=== PATIENT | male | born 1995 | race Caucasian/White ===

== ENCOUNTER 2017-01-10 18:56 | Emergency (ER) | payer OTHER ==
[~2017-01-10] VITALS: Ht 185.4 cm; Wt 108.9 kg
[2017-01-10 19:20] VITALS: BP 129/83
[2017-01-10] MEDS ORDERED: ACETAMINOPHEN/CODEINE#3 (300/30mg) TAB PO ONE (22:45)
== END 2017-01-10 23:20 | disposition home or self-care (01) ==
LOC: ER 19:05
DX: S00.93XA Contusion of unspecified part of head, initial encounter (principal); F17.210 Nicotine dependence, cigarettes, uncomplicated; W22.8XXA Striking against or struck by other objects, initial encounter; Y93.89 Activity, other specified; Y99.0 Civilian activity done for income or pay; Y92.69 Other specified industrial and construction area as the place of occurrence of the external cause
CPT/HCPCS: 70450

== ENCOUNTER 2020-01-24 14:26 | Emergency (ER) | payer BC, OTHER ==
[~2020-01-24] VITALS: Ht 185.4 cm; Wt 86.2 kg
[2020-01-24] MEDS ORDERED: SODIUM CHLORIDE 0.9% 500 ML IVB ONE (14:28)
[2020-01-24 14:53] LABS: Basophils # (auto) 0 10 ^3/uL (0-0.2); Basophils % (auto) 0.1 % (0.0-2.0); Eosinophils # (auto) 0 10 ^3/uL (0-0.8); Eosinophils % (auto) 0.1 % (0.0-7.0); Hemoglobin 15.6 g/dL (13.5-17.5); Lymphocytes # (auto) 1.2 10 ^3/uL (0.4-5.4); Lymphocytes % (auto) 17.6 % (10.0-50.0); Mean Corpuscular Hemoglobin 28.9 pg (28.0-32.0); Mean Corpuscular Hgb Conc. 33.2 g/dL (32.0-36.0); Mean Corpuscular Volume 87.3 fL (80.0-100.0); Monocytes # (auto) 0.7 10 ^3/uL (0-1.3); Monocytes % (auto) 10.2 % (0.0-12.0); Neutrophils # (auto) 4.9 10 ^3/uL (1.6-8.6); Platelet Count (auto) 197 10^3/uL (140-450); Red Blood Cells 5.39 10^6/uL (4.5-5.90); Red Cell Distribution Width 14.3 % (11.8-14.3); White Blood Cell 6.8 10^3/uL (4.4-10.8)
[2020-01-24 15:06] VITALS: BP 119/71
[2020-01-24 15:08] LABS: Alanine Aminotransferase 36 U/L (16-61); Albumin 3.8 g/dL (3.4-5.0); Anion Gap 6 (5-15); Aspartate Aminotransferase 16 U/L (15-37); BUN/Creatinine Ratio 13.3; Blood Alcohol < 3.0 mg/dL (0-5); Blood Urea Nitrogen 12 mg/dL (7-18); Calcium 9.7 mg/dL (8.5-10.1); Carbon Dioxide 26 mmol/L (21-32); Chloride 106 mmol/L (98-107); GFR African American 133 mL/min; GFR Non-African American 110 mL/min; Glucose 99 mg/dL (74-106); Potassium 4.2 mmol/L (3.5-5.1); Sodium 138 mmol/L (136-145)
[2020-01-24 15:10] LABS: Alkaline Phosphatase 99 U/L (45-117); Bilirubin, Total 0.4 mg/dL (0.2-1.0)
[2020-01-24 15:42] LABS: Alcohol, Urine < 3.0 mg/dL (0-5); Amphetamine Screen, Urine POSITIVE (NEGATIVE); Barbiturate Scree,Urine NEGATIVE (NEGATIVE); Benzodiazephine Screen, Urine NEGATIVE (NEGATIVE); Cannabinoid Screen, Urine NEGATIVE (NEGATIVE); Cocaine Screen, Urine NEGATIVE (NEGATIVE); Opiate Scree,Urine NEGATIVE (NEGATIVE); Phencyclidine Screen, Urine NEGATIVE (NEGATIVE)
== END 2020-01-24 18:52 | disposition home or self-care (01) ==
LOC: EDBD 14:26 → ER 14:26
DX: T65.91XA Toxic effect of unspecified substance, accidental (unintentional), initial encounter (principal); M54.9 Dorsalgia, unspecified; R41.82 Altered mental status, unspecified; F41.9 Anxiety disorder, unspecified; F12.10 Cannabis abuse, uncomplicated; F15.10 Other stimulant abuse, uncomplicated; F17.210 Nicotine dependence, cigarettes, uncomplicated; Y92.9 Unspecified place or not applicable
CPT/HCPCS: 36415; 80053; 80307; 80320; 80329; 85025; 93005; 96360; 99284; J7040

== ENCOUNTER 2023-03-05 07:45 | Emergency (ER) | payer BC, MEDICAID ==
[~2023-03-05] VITALS: Ht 185.4 cm; Wt 91.0 kg
[2023-03-05 08:20] VITALS: BP 111/61
[2023-03-05] MEDS ORDERED: BACL10TA PO (08:55)
[2023-03-05] MEDS ORDERED: IBUP800T27 PO (08:55)
[2023-03-05] MEDS ORDERED: KETOROLAC TROMETH 60MG/2ML VIAL IM ONE (09:00)
== END 2023-03-05 09:16 | disposition home or self-care (01) ==
LOC: ER 07:45
DX: S76.011A Strain of muscle, fascia and tendon of right hip, initial encounter (principal); S23.41XA Sprain of ribs, initial encounter; F12.90 Cannabis use, unspecified, uncomplicated; F15.90 Other stimulant use, unspecified, uncomplicated; Z98.890 Other specified postprocedural states; W18.39XA Other fall on same level, initial encounter; Y93.89 Activity, other specified; Y92.89 Other specified places as the place of occurrence of the external cause; Y99.8 Other external cause status
CPT/HCPCS: 71101; 73502; 96372; 99284; J1885

== ENCOUNTER 2023-05-06 17:15 | Emergency (ER) | payer MEDICAID ==
[~2023-05-06] VITALS: Ht 185.4 cm; Wt 82.1 kg
[~2023-05-06 17:15] MED LIST: BACL10TA PO; IBUP-1456 PO
[2023-05-06 17:37] VITALS: BP 127/94
[2023-05-06] MEDS ORDERED: cefTRIAXone SOD 1,000 MG VL IM ONE (17:45)
[2023-05-06] MEDS ORDERED: DexAMETHasone SOD PHOS 10MG/1ML VIAL INJ IM ONE (17:45)
[2023-05-06] MEDS ORDERED: AZIT500T66 PO (17:46)
[2023-05-06] MEDS ORDERED: LIDO2SOL26 MT (17:46)
== END 2023-05-06 18:06 | disposition home or self-care (01) ==
LOC: ER 17:15
DX: J03.90 Acute tonsillitis, unspecified (principal); F17.210 Nicotine dependence, cigarettes, uncomplicated; F12.10 Cannabis abuse, uncomplicated; F15.10 Other stimulant abuse, uncomplicated
CPT/HCPCS: 96372; 99284; J0696; J1100

== ENCOUNTER 2023-05-29 07:46 | Emergency (ER) | payer MEDICAID ==
[~2023-05-29] VITALS: Ht 185.4 cm; Wt 83.5 kg
[~2023-05-29 07:46] MED LIST changes: +AZIT500T66 PO; +LIDO2SOL26 MT
[2023-05-29 08:11] LABS: Urine Bacteria FEW /hpf (None Seen); Urine Blood Negative /uL (Negative); Urine Hyaline Cast FEW /lpf (0 - 2); Urine Mucus FEW (None Seen); Urine Specific Gravity 1.033 (1.001-1.035); Urine WBC 3 /hpf (0 - 3)
[2023-05-29 08:21] LABS: Basophils # (auto) 0 10 ^3/uL (0-0.2); Basophils % (auto) 0.4 % (0.0-2.0); Eosinophils # (auto) 0 10 ^3/uL (0-0.8); Eosinophils % (auto) 0.1 % (0.0-7.0); Hematocrit 45.6 % (41.0-53.0); Hemoglobin 14.8 g/dL (13.5-17.5); Lymphocytes # (auto) 0.9 10 ^3/uL (0.4-5.4); Lymphocytes % (auto) 30.7 % (10.0-50.0); Mean Corpuscular Hemoglobin 28.6 pg (28.0-32.0); Mean Corpuscular Hgb Conc. 32.5 g/dL (32.0-36.0); Monocytes # (auto) 0.3 10 ^3/uL (0-1.3); Monocytes % (auto) 12.4 % (0.0-12.0); Neutrophils # (auto) 1.6 10 ^3/uL (1.6-8.6); Neutrophils % (auto) 56.4 % (37.0-80.0); Nucleated Red Blood Cells % 0.2 %; Red Blood Cells 5.18 10^6/uL (4.5-5.90); Red Cell Distribution Width 16.3 % (11.8-14.3); White Blood Cell 2.8 10^3/uL (4.4-10.8)
[2023-05-29 08:38] LABS: Albumin 3.5 g/dL (3.4-5.0); Calcium 8.3 mg/dL (8.5-10.1); Potassium 3.7 mmol/L (3.5-5.1)
[2023-05-29 08:41] LABS: BUN/Creatinine Ratio 17.5 (10.0-20.0); Bilirubin, Total 0.4 mg/dL (0.2-1.0); Total Protein 8.4 g/dL (6.4-8.2)
[2023-05-29] MEDS ORDERED: ONDANSETRON HCL 4 MG/2 ML VIAL IV ONE (10:00)
[2023-05-29] MEDS ORDERED: LOPERAMIDE HCL 2 MG CAP/TAB PO ONE (10:00)
[2023-05-29] MEDS ORDERED: HYDROmorphone HCL 2 MG/ML VL/or syr IV ONE (10:00)
[2023-05-29] MEDS ORDERED: ACETAMINOPHEN 325 MG TAB PO ONE (10:00)
[2023-05-29] MEDS ORDERED: SODIUM CHLORIDE 0.9% 1,000 ML IVB ONE (10:00)
[2023-05-29] MEDS ORDERED: IOHEXOL 350 MG/ML 100ML IJ ONE (10:17)
[2023-05-29 10:23] LABS: Magnesium 2.3 mg/dL (1.6-2.6)
[2023-05-29 10:48] LABS: INR 1.06 (0.9-1.15); Partial Thromboplastin Time 34.5 SEC (24.5-34.5)
[2023-05-29 11:16] VITALS: PULSE 74; RESP 16; O2SAT 99
[2023-05-29] MEDS ORDERED: LOPE7.5C PO (13:32)
[2023-05-29] MEDS ORDERED: MET500T PO (13:32)
[2023-05-29] MEDS ORDERED: ZOFR4T PO (13:32)
[2023-05-29 13:50] VITALS: BP 117/65; PULSE 71; RESP 18; TEMP 98.1; O2SAT 97
== END 2023-05-29 13:51 | disposition home or self-care (01) ==
LOC: ER 07:46
DX: R10.84 Generalized abdominal pain (principal); R11.2 Nausea with vomiting, unspecified; F17.210 Nicotine dependence, cigarettes, uncomplicated; F12.10 Cannabis abuse, uncomplicated; F15.10 Other stimulant abuse, uncomplicated; Z79.899 Other long term (current) drug therapy
CPT/HCPCS: 36415; 74177; 80053; 81001; 83690; 83735; 85025; 85610; 85730; 96361; 96374; 96375; 99285; J1170; J2405; J7030; Q9967

== ENCOUNTER 2023-05-31 03:20 | Emergency (ER) | payer MEDICAID ==
[~2023-05-31] VITALS: Ht 185.4 cm; Wt 81.0 kg
[~2023-05-31 03:20] MED LIST changes: +LOPE7.5C PO; +MET500T PO; +ZOFR4T PO
[2023-05-31 04:10] VITALS: TEMP 98.1
[2023-05-31] MEDS ORDERED: AMOX875T4 PO (04:23)
[2023-05-31] MEDS ORDERED: PRED20TA2 PO (04:23)
[2023-05-31] MEDS ORDERED: cefTRIAXone SOD 1,000 MG VL IM ONE (04:30)
[2023-05-31] MEDS ORDERED: methylPREDNISolone SOD SUCC 40 MG/ML VL IM ONE (04:30)
[2023-05-31 06:10] VITALS: BP 107/60; PULSE 75; RESP 18; O2SAT 99
== END 2023-05-31 06:13 | disposition home or self-care (01) ==
LOC: ER 03:20
DX: J03.90 Acute tonsillitis, unspecified (principal); Z79.899 Other long term (current) drug therapy
CPT/HCPCS: 96372; 99284; J0696; J2920

== ENCOUNTER 2023-08-08 08:26 | Emergency (ER) | payer MEDICAID ==
[~2023-08-08] VITALS: Ht 185.4 cm; Wt 84.1 kg
[~2023-08-08 08:26] MED LIST changes: +AMOX875T4 PO; +PRED20TA2 PO
[2023-08-08] MEDS ORDERED: IPRATROPIUM BROM 0.5 MG/2.5ML INH SOL HHN ONE (08:45)
[2023-08-08] MEDS ORDERED: ALBUTEROL SULF 2.5 MG/0.5ML(0.5%) NEB SOLN HHN ONE (08:45)
[2023-08-08 09:00] VITALS: PULSE 90; RESP 20; O2SAT 98
[2023-08-08 09:09] LABS: Base Excess -0.2 mmol/L (-2.0-2.0)
[2023-08-08 09:33] LABS: Basophils # (auto) 0 10 ^3/uL (0-0.2); Basophils % (auto) 0.4 % (0.0-2.0); Eosinophils # (auto) 0 10 ^3/uL (0-0.8); Eosinophils % (auto) 0.4 % (0.0-7.0); Hematocrit 37.8 % (41.0-53.0); Hemoglobin 12.5 g/dL (13.5-17.5); Lymphocytes % (auto) 19.5 % (10.0-50.0); Mean Corpuscular Hemoglobin 29.3 pg (28.0-32.0); Monocytes # (auto) 0.9 10 ^3/uL (0-1.3); Monocytes % (auto) 17.7 % (0.0-12.0); Nucleated Red Blood Cells % 0.2 %; Red Blood Cells 4.25 10^6/uL (4.5-5.90); Red Cell Distribution Width 14.7 % (11.8-14.3); White Blood Cell 4.9 10^3/uL (4.4-10.8)
[2023-08-08 09:43] LABS: COVID19 ANTIGEN SOFIA FIA POSITIVE (NEGATIVE)
[2023-08-08 09:44] LABS: Alanine Aminotransferase 64 U/L (7-40); Alkaline Phosphatase 87 U/L (46-116); Anion Gap 8 (5-15); Aspartate Aminotransferase 41 U/L (13-40); BUN/Creatinine Ratio 15.5 (10.0-20.0); Blood Urea Nitrogen 11 mg/dL (9-23); Carbon Dioxide 23 mmol/L (20-30); Chloride 108 mmol/L (98-107); Glucose 103 mg/dL (74-106); Potassium 4.2 mmol/L (3.5-5.1); Sodium 139 mmol/L (136-145)
[2023-08-08 09:45] LABS: Bilirubin, Total 0.3 mg/dL (0.2-1.0); Total Protein 7.4 g/dL (5.7-8.2)
[2023-08-08] MEDS ORDERED: METH4PAK PO (10:25)
[2023-08-08] MEDS ORDERED: AZIT1POW PO (10:25)
[2023-08-08 10:42] VITALS: BP 135/64; PULSE 84; RESP 16; TEMP 98.7; O2SAT 98
[2023-08-08 11:08] LABS: Urine Bacteria NONE SEEN /hpf (None Seen); Urine Blood Negative /uL (Negative); Urine Clarity Clear (Clear); Urine Color Colorless (Yellow); Urine Protein, UAD Negative (Negative); Urine Specific Gravity 1.019 (1.001-1.035); Urine Urobilinogen Normal (Negative); Urine WBC <1 /hpf (0 - 3); Urine pH 7.5 (5.0-8.0)
== END 2023-08-08 10:43 | disposition home or self-care (01) ==
LOC: ER 08:26
DX: U07.1 COVID-19 (principal); F17.210 Nicotine dependence, cigarettes, uncomplicated; F12.90 Cannabis use, unspecified, uncomplicated; Z90.49 Acquired absence of other specified parts of digestive tract; Z79.899 Other long term (current) drug therapy
CPT/HCPCS: 36415; 36600; 71045; 80053; 81001; 82805; 84484; 85025; 87426; 93005; 94640; 99285; J7644

== ENCOUNTER 2023-08-10 12:16 | Emergency (ER) | payer MEDICAID ==
[~2023-08-10] VITALS: Ht 185.4 cm; Wt 85.3 kg
[~2023-08-10 12:16] MED LIST changes: +AZIT1POW PO; +METH4PAK PO
[2023-08-10 13:00] VITALS: BP 125/79; PULSE 84; RESP 15; TEMP 97.2; O2SAT 99
[2023-08-10] MEDS ORDERED: TOB03OS OP (13:26)
== END 2023-08-10 13:30 | disposition home or self-care (01) ==
LOC: ER 12:16
DX: S05.01XA Injury of conjunctiva and corneal abrasion without foreign body, right eye, initial encounter (principal); F17.210 Nicotine dependence, cigarettes, uncomplicated; Z90.89 Acquired absence of other organs; Z79.1 Long term (current) use of non-steroidal anti-inflammatories (NSAID); Z79.2 Long term (current) use of antibiotics; Z79.899 Other long term (current) drug therapy; X58.XXXA Exposure to other specified factors, initial encounter; Y93.89 Activity, other specified; Y92.89 Other specified places as the place of occurrence of the external cause; Y99.8 Other external cause status

== ENCOUNTER 2025-07-10 19:36 | Emergency (ER) | payer SELFPAY, OTHER ==
[~2025-07-10] VITALS: Ht 185.4 cm; Wt 89.9 kg
[~2025-07-10 19:36] MED LIST changes: +TOB03OS OP
[2025-07-10 22:16] VITALS: BP 109/52; PULSE 79; RESP 16; TEMP 98.3; O2SAT 93
[2025-07-10] MEDS: HYDROcodone-ACET 5/325MG TAB PO ONE (22:57)
[2025-07-10] MEDS: KETOROLAC TROMETH 60MG/2ML VIAL IM ONE (22:57)
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
[2025-07-11] MEDS: KETOROLAC TROMETH 60MG/2ML VIAL IM ONE (01:16)
[2025-07-11] MEDS: HYDROcodone-ACET 5/325MG TAB PO ONE (01:17)
[2025-07-11] MEDS: BACITRACIN TOP OINT 1 UD PKG TOP ONE (01:21)
[2025-07-11] MEDS ORDERED: IBUP-1456 PO (01:39)
[2025-07-11] MEDS ORDERED: BACL10TA PO (01:39)
== END 2025-07-11 02:45 | disposition home or self-care (01) ==
LOC: ER 19:36
DX: S92.512A Displaced fracture of proximal phalanx of left lesser toe(s), initial encounter for closed fracture (principal); S33.5XXA Sprain of ligaments of lumbar spine, initial encounter; S93.601A Unspecified sprain of right foot, initial encounter; S70.01XA Contusion of right hip, initial encounter; Z90.89 Acquired absence of other organs; Z79.899 Other long term (current) drug therapy; V29.99XA Rider (driver) (passenger) of other motorcycle injured in unspecified traffic accident, initial encounter; Y93.89 Activity, other specified; Y92.410 Unspecified street and highway as the place of occurrence of the external cause; Y99.8 Other external cause status
CPT/HCPCS: 72100; 73502; 73630; 96372; 99284; J1885